=== PATIENT | male | born 1990 | race Caucasian/White ===

== ENCOUNTER 2016-06-14 15:00 | Observation (INO) | payer SELFPAY ==
[~2016-06-14] VITALS: Ht 172.7 cm; Wt 65.0 kg
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
--- NOTE | 2016-06-14 16:04 | NUR ---
patient is somewhat sedated at this time. apparently was given Ativan for the transfer here from [place]. is difficult to arouse, but he will with a startle, and try to answer questions, falls back to sleep during his sentences. will try to complete assessment in a few hours after patient becomes more awake. eyes do appear to be blood shot when he opens them. IV is infusing in left antecubital space without erythema or edema noted at site.
--- NOTE | 2016-06-14 17:52 | NUR ---
Significant Event: Arrived by EMS cart at 1545. Oriented to person and time, thinks he is in [place] still but reoriented. Very drowsy, Ativan given before transfer to [facility]. CSM intact, weak but equal strength. PERRLA 5mm. Follows commands and moves all extremities spontaneously but drifts to sleep without stimulation. [place] collar on, rates pain 7/10 to posterior neck. Denies nausea/NÚÑEZ/N/T. VSS, afebrile, room air. 16 G to L) AC SL, 900 ml NS given before transfer. No voids. Follow up: Need to complete Database I once patient more awake and able to answer questions. History of anxiety, adjustment disorder, and ADHD per [place]. L) shoulder drug monitoring patch in place, pt states this is to be changed every Tuesday.
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
--- NOTE | 2016-06-15 01:38 | NUR ---
Significant Event: Patient is alert and oriented x3, can be drowsy at times. VSS. Denies ÚNÑEZ, N/T, pain is controlled with PO norco. PERRLA. Pupils are 5mm and brisk. Sinus rhythm-hypotensive. Room air-clear. Regular diet-active x4. Last BM 06/13. Up to bathroom with 1A & GB. [place] collar on. L) AC PIV-sl'd. Follow up: Family will be here tomorrow.
--- NOTE | 2016-06-15 15:30 | NUR ---
Introduced self and role of care management to patient, his dad and stepmom. Patient lives in [place] with his dad and stepmom. He is self pay and does have the financial assistance form from admissions. He plans to go home when ready for discharge. He hopes will release him today when he rounds. Does not anticipate discharge needs at this time. Will follow.
--- NOTE | 2016-06-15 17:48 | NUR ---
Significant Event: Alert and oriented X 3. Room air. SBP 100's and 110's. HR 50's and 60's. Afebrile. Up with SBA to independent. [place] collar at all times. New padding in room. Percocet given X 2, last given at 1723. Up to shower this shift. Denies numbness and tingling. Good CSM. Eyes 4 brisk and reactive. Patch on left shoulder that detects drugs. Pleasant and cooperative with cares. Follow up:
--- NOTE | 2016-06-16 06:27 | NUR ---
Significant Event: Patient A/O x 3. Perrla. Denies N/T/Headache. Moves without difficulty. Follows commands. Pain to posterior neck this shift. Topaz given last at 0305 x 2 tabs. Bradycardia while sleeping, HR-40's. Lungs clear and dim on room air. Bowel sounds active. SBA. Portable tele. [place] collar on at all times. IV to right hand saline locked. Follow up: Possibly home today
--- NOTE | 2016-06-16 12:25 | NUR ---
Significant Event: A/o x3. VSS. RA. Lungs clear. Active bowel sounds. Shower done. Up to BR x2 independently. C/o pain in posterior neck and back. [place] 2 tabs given x2 with some relief. [place] collar on at all times. Follow up: Discharge home
[2016-06-16] MEDS ORDERED: NORCO 5-325 TA1 EACH PO (12:56)
== END 2016-06-16 15:00 | disposition disaster alternative care site (69) ==
LOC: GNTU 15:42
PROVIDERS: ADMIT Neurological Surgery
DX: S12.110A Anterior displaced Type II dens fracture, initial encounter for closed fracture (principal); V89.2XXA Person injured in unspecified motor-vehicle accident, traffic, initial encounter
CPT/HCPCS: G0378; J2270